=== PATIENT | female | born 1960 | race Caucasian/White ===

== ENCOUNTER → 2017-01-05 | Outpatient (CLI) | payer OTHER ==
--- NOTE | 2017-01-05 18:02 | DIAGNOSTIC IMAGING REPORT ---
LUMBAR SPINE 5 VIEWS HISTORY: Pain. Neuropathy. M54.9 COMPARISON: None. FINDINGS: There is no fracture. Mild rotational levoscoliosis. Grade 2 anterolisthesis L4 on L5 apparently secondary to degenerative changes of posterior elements. Small vacuum disc L5-S1. Considerable sclerosis and degenerative change of sacroiliac joints. Moderate degenerative disc change from L4 through S1 IMPRESSION: 1. Mild rotational levoscoliosis. 2. Considerable degenerative change of the sacroiliac joints. 3. Grade 2 anterolisthesis of L4 on L5 secondary to degenerative changes of the posterior lungs. 4. Vacuum disc L5-S1 Electronically signed by: Daniel Maldonado M.D. 01/05/2017 6:01 PM Dictated Date/Time: 01/05/2017 5:59 PM
== END | disposition home or self-care (01) ==
LOC: C.RAD 17:35
PROVIDERS: ATTEND Family Medicine
DX: M54.9 Dorsalgia, unspecified (principal)

== ENCOUNTER → 2017-02-16 | Outpatient (CLI) | payer OTHER ==
--- NOTE | 2017-02-16 15:44 | DIAGNOSTIC IMAGING REPORT ---
LUMBAR SPINE MRI HISTORY: Back pain M54.9 Acute back painM54.16 Lumbar [id number] TECHNIQUE: Multiplanar multisequence MRI of the lumbar spine was performed without the use of contrast. COMPARISON: None. FINDINGS: For the purpose of the report the L5-S1 disc space will be located on axial image 26 of 33. Moderate degenerative disc changes throughout. Grade 1 anterolisthesis of L4 on L5. Anterolisthesis is estimated at 5 mm. No evidence for bone marrow replacing process. Somewhat compromised transaxial images due to considerable patient motion. L1-L2: No significant central canal or neural foraminal narrowing. L2-L3: No significant central canal or neural foraminal narrowing. L3-L4: Mild broad-based disc bulge. Minimal impact anterior thecal sac. L4-L5: Broad-based posterior extradural defect. Mild narrowing of the spinal canal on a multifactorial basis. This is secondary to the patient's grade 1 anterolisthesis of L4 and L5, broad-based bulging disc, and mild hypertrophic changes of posterior elements. L5-S1: Central disc bulge with minimal impact anterior thecal sac. IMPRESSION: 1. Moderate multifactorial spinal stenosis L4-L5. 2. Moderate narrowing of the neuroforamina bilaterally at L4-L5 accentuated by a grade 1 anterolisthesis of L4 on L5. 3. Mild central disc bulge L5-S1 Electronically signed by: Daniel Maldonado M.D. 02/16/2017 3:43 PM Dictated Date/Time: 02/16/2017 3:39 PM
== END | disposition home or self-care (01) ==
LOC: C.MRI 13:33
PROVIDERS: ATTEND Family Medicine
DX: M54.16 Radiculopathy, lumbar region (principal); M54.9 Dorsalgia, unspecified

== ENCOUNTER → 2017-11-14 | Outpatient (CLI) | payer OTHER ==
--- NOTE | 2017-11-15 13:48 | MAMMOGRAPHY REPORT ---
BILATERAL DIGITAL SCREENING MAMMOGRAM TOMOSYNTHESIS WITH CAD: 11/14/2017 CLINICAL HISTORY: Routine screening. Patient has no complaints. TECHNIQUE: Breast tomosynthesis in addition to standard 2D mammography was performed. Current study was also evaluated with a Computer Aided Detection (CAD) system. COMPARISON: Comparison is made to exams dated: 11/08/2016 mammogram, 11/05/2015 mammogram, 4 mammogram, 10/31/2013 mammogram, 10/30/2012 mammogram, and 10/25/2011 mammogram - [facility]. BREAST COMPOSITION: There are scattered areas of fibroglandular density in both breasts. FINDINGS: There are numerous benign rim calcifications in the breasts. No suspicious mass, soa architect ural distortion or cluster of suspicious microcalcifications is seen. IMPRESSION: ACR BI-RADS CATEGORY 1: NEGATIVE There is no mammographic evidence of malignancy. A 1 year screening mammogram is recommended. The pa tient will receive written notification of the results. Approximately 10% of breast cancers are not detected with mammography. A negative mammographic report should not delay biopsy if a clinically suggestive mass is present. Lesli Yang M.D. ay/:11/14/2017 16:56:43 Dispatch Coordinator: Danielle EVANGELISTA(Sadie)([place]), [facility] letter sent: Normal 1/2 BI-RADS Code: ACR BI-RADS Category 1: Negative
== END | disposition home or self-care (01) ==
LOC: C.MAMM 13:23
PROVIDERS: ATTEND Physician Assistant
DX: Z12.31 Encounter for screening mammogram for malignant neoplasm of breast (principal)